=== PATIENT | female | born 1975 | race Caucasian/White ===

== ENCOUNTER → 2016-08-01 | Outpatient (CLI) | payer BC ==
[~2016-08-01] MED LIST: ASCO10003 PO; CALC1CHW57 PO; NAPR1TAB9 PO; OMEP40CA41 PO; OXYC-57 PO; PRLSR20 PO; ZNTT/150 PO
--- NOTE | 2016-08-01 12:43 | MAMMOGRAPHY REPORT ---
BILATERAL DIGITAL SCREENING MAMMOGRAM TOMOSYNTHESIS WITH CAD: 08/01/2016 CLINICAL HISTORY: Routine screening. Patient has no complaints. TECHNIQUE: Breast tomosynthesis in addition to standard 2D mammography was performed. Current study was also evaluated with a Computer Aided Detection (CAD) system. COMPARISON: Comparison is made to exams dated: 07/18/2015 mammogram, 12/15/2013 mammogram, and 3 mammogram - [facility]. BREAST COMPOSITION: The tissue of both breasts is heterogeneously dense, which may obscure small ma sses. FINDINGS: No suspicious masses, calcifications, or areas of architectural distortion are noted in e ither breast. There has been no significant interval change compared to prior exams. IMPRESSION: ACR BI-RADS CATEGORY 1: NEGATIVE There is no mammographic evidence of malignancy. A 1 year screening mammogram is recommended. The p atient will receive written notification of the results. Approximately 10% of breast cancers are not detected with mammography. A negative mammographic repor t should not delay biopsy if a clinically suggestive mass is present. Jacquie Sainz M.D. ah/:08/01/2016 12:35:24 Supply Chain Associate: Nathalia Carrasco RT(R)(M), [facility] letter sent: Normal 1/2 BI-RADS Code: ACR BI-RADS Category 1: Negative
== END | disposition home or self-care (01) ==
LOC: C.MAMM 08:07
PROVIDERS: ATTEND Obstetrics & Gynecology
DX: Z12.31 Encounter for screening mammogram for malignant neoplasm of breast (principal)

== ENCOUNTER 2016-10-16 16:57 | Emergency (ER) | payer BC ==
[~2016-10-16] VITALS: Ht 172.7 cm; Wt 69.8 kg
[~2016-10-16 16:57] MED LIST changes: -CALC1CHW57 PO; -OMEP40CA41 PO; -OXYC-57 PO
[2016-10-16 17:00] VITALS: Ht 172.7 cm; Wt 69.8 kg
[2016-10-16] MEDS ORDERED: KETOROLAC TROMETHAMINE 30 MG/ML VIAL IV STA (17:17)
[2016-10-16] MEDS ORDERED: ASPIRIN 324 MG CHEW PO STA (17:17)
[2016-10-16] MEDS ORDERED: OMEP40CA41 PO (17:21)
--- NOTE | 2016-10-16 17:30 | DIAGNOSTIC IMAGING REPORT ---
CHEST ONE VIEW PORTABLE CLINICAL HISTORY: Atypical chest pain COMPARISON STUDY: 09/13/2015 FINDINGS: The cardiac and mediastinal contours are normal. There is no evidence of focal pulmonary consolidation. There is no evidence of failure. No pleural effusions are visualized.[ IMPRESSION: No active disease in the chest. Electronically signed by: Arsen Hay M.D. 10/16/2016 5:28 PM Dictated Date/Time: 10/16/2016 5:28 PM
--- NOTE | 2016-10-16 17:32 | EMERGENCY ROOM VISIT NOTE ---
History Report prepared by Piero: Eileen Pendleton Under the Supervision of: Dr. David Mark D.O. First contact with patient: 17:05 Chief Complaint: SHOULDER PAIN Stated Complaint: TIGHTNESS/PAIN IN LEFT SHOULDER AREA History of Present Illness The patient is a 41 year old female who presents to the Emergency Room with complaints of constant left shoulder tightness beginning at 1:30 PM. The patient states that she was sitting at her desk working when the pain started. She complains of chest pain and back pain similar to an episode that she experienced a few days ago. When the first episode of this pain started a few days ago, she notes that she saw her doctor and had an EKG that came back normal. Today she also complains of left hand pain that began at the same time as her shoulder pain. She denies any nausea, vomiting, diarrhea, pain in the jaw , cough, runny nose, sore throat, urinary symptoms, recent trips, coughing up blood, recent surgeries history of blood clots and swelling in the calves. The patient reports that she has a history of esophageal spasms but has no history of diabetes, heart disease, hyperlipidemia, smoking, cancer, or heart problems in herself or in her family history. She states that nothing makes her pain better or worse. Source of History: patient Onset: 4 hours ago Position: other (left shoulder) Quality: other (tightness) Timing: constant Modifying Factors (Worsening): other (none) Modifying Factors (Relieving): other (none) Associated Symptoms: + back pain, + chest pain, No cough, No diarrhea, No nausea, No sorethroat, No urinary symptoms, No vomiting Note: Pt complains of hand pain. She denies any pain in the jaw, runny nose, recent trips, and swelling in the calves Review of Systems See HPI for pertinent positives & negatives. A total of 10 systems reviewed and were otherwise negative. Past Medical & Surgical Medical Problems: (1) Vaginal delivery Surgical Problems: (1) History of arthroscopy of left knee (2) Hx of detached retina repair Family History FH: cancer FH: diabetes mellitus Social History Smoking Status: Never Smoker Smokeless Tobacco Use: No Alcohol Use: occasionally Marital Status: Housing Status: lives with family Occupation Status: employed Current/Historical Medications Scheduled Ascorbic Acid (Vitamin C), 2 TAB PO QAM Omeprazole (Prilosec), 40 MG PO DAILY Scheduled PRN Naproxen (Aleve), 2 TAB PO DAILY PRN for Headache Ranitidine (Zantac), 150 MG PO DAILY PRN for Heartburn Allergies Coded Allergies: Nitrofurantoin (Verified Allergy, Mild, DIFFICULTY BREATHING AND DIZZINESS , 10/06/16) Physical Exam Vital Signs Date Time Temp Pulse Resp B/P Pulse Ox O2 Delivery O2 Flow Rate FiO2 10/16/16 22:42 36.6 71 16 116/67 100 10/16/16 22:42 71 16 116/67 100 Room Air 10/16/16 19:48 71 16 116/66 100 Room Air 10/16/16 17:00 36.6 75 16 118/65 100 Room Air Physical Exam GENERAL: sitting up in bed, alert, well appearing, well nourished, no distress, non-toxic EYE EXAM: normal conjunctiva OROPHARYNX: no exudate, no erythema, lips, buccal mucosa, and tongue normal and mucous membranes are moist NECK: supple, no nuchal rigidity, no adenopathy, non-tender LUNGS: Clear to auscultation. Normal chest wall mechanics HEART: no murmurs, S1 normal and S2 normal ABDOMEN: abdomen soft, non-tender, normo-active bowel sounds, no masses, no rebound or guarding. BACK: Back is symmetrical on inspection and there is no deformity, no midline tenderness, no CVA tenderness. SKIN: no rashes and no bruising UPPER EXTREMITIES: upper extremities are grossly normal. Radial pulses are equal bilaterally LOWER EXTREMITIES: No pitting edema. Calves are equal bilaterally NEURO EXAM: Normal sensorium, cranial nerves II-XII grossly intact, normal speech, no gross weakness of arms, no gross weakness of legs. Medical Decision & Procedures ER Provider Diagnostic Interpretation: Radiology results as stated below per my review and the radiologist's interpretation: CHEST ONE VIEW PORTABLE FINDINGS: The cardiac and mediastinal contours are normal. There is no evidence of focal pulmonary consolidation. There is no evidence of failure. No pleural effusions are visualized. IMPRESSION: No active disease in the chest. Electronically signed by: Arsen Hay M.D. 10/16/2016 5:28 PM Dictated Date/Time: 10/16/2016 5:28 PM Laboratory Results 10/16/16 17:45 Red Blood Count 4.22, Mean Corpuscular Volume 90.0, Mean Corpuscular Hemoglobin 30.8, Mean Corpuscular Hemoglobin Concent 34.2, Mean Platelet Volume 9.1, Neutrophils (%) (Auto) 62.4, Lymphocytes (%) (Auto) 28.6, Monocytes (%) (Auto) 5.6, Eosinophils (%) (Auto) 2.8, Basophils (%) (Auto) 0.3, Neutrophils # (Auto) 4.21, Lymphocytes # (Auto) 1.93, Monocytes # (Auto) 0.38, Eosinophils # (Auto) 0.19, Basophils # (Auto) 0.02 10/16/16 17:45 Test 10/16/16 17:45 10/16/16 21:30 White Blood Count 6.75 K/uL (4.8-10.8) Red Blood Count 4.22 M/uL (4.2-5.4) Hemoglobin 13.0 g/dL (12.0-16.0) Hematocrit 38.0 % (37-47) Mean Corpuscular Volume 90.0 fL (80-100) Mean Corpuscular Hemoglobin 30.8 pg (25-34) Mean Corpuscular Hemoglobin Concent 34.2 g/dl (32-36) Platelet Count 281 K/uL (130-400) Mean Platelet Volume 9.1 fL (7.4-10.4) Neutrophils (%) (Auto) 62.4 % Lymphocytes (%) (Auto) 28.6 % Monocytes (%) (Auto) 5.6 % Eosinophils (%) (Auto) 2.8 % Basophils (%) (Auto) 0.3 % Neutrophils # (Auto) 4.21 K/uL (1.4-6.5) Lymphocytes # (Auto) 1.93 K/uL (1.2-3.4) Monocytes # (Auto) 0.38 K/uL (0.11-0.59) Eosinophils # (Auto) 0.19 K/uL (0-0.5) Basophils # (Auto) 0.02 K/uL (0-0.2) RDW Standard Deviation 41.5 fL (36.4-46.3) RDW Coefficient of Variation 12.7 % (11.5-14.5) Immature Granulocyte % (Auto) 0.3 % Immature Granulocyte # (Auto) 0.02 K/uL (0.00-0.02) D-Dimer < 190 ug/L FEU (0-500) Anion Gap 5.0 mmol/L (3-11) Est Creatinine Clear Calc Drug Dose 98.2 ml/min Estimated GFR () 112.9 Estimated GFR (Non- 97.4 BUN/Creatinine Ratio 14.9 (10-20) Calcium Level 8.9 mg/dl (8.5-10.1) Total Creatine Kinase 59 U/L (26-192) Creatine Kinase MB 0.6 ng/ml (0.5-3.6) Creatine Kinase MB Ratio (0-3.0) Troponin I < 0.015 ng/ml (0-0.045) Laboratory results per my review. Medications Administered Medications (Trade) Dose Ordered Sig/Stephan Route Start Time Stop Time Status Last Admin Dose Admin Aspirin (Aspirin Chew) 324 mg NOW STAT PO 10/16/16 17:17 10/16/16 17:18 DC 10/16/16 17:47 324 MG Ketorolac Tromethamine (Toradol Inj) 30 mg NOW STAT IV 10/16/16 17:17 10/16/16 17:18 DC 10/16/16 17:47 30 MG ECG Indication: chest pain Rate (beats per minute): 67 Rhythm: sinus rhythm Findings: other (normal axis, RR prime in septal leads, normal intervals) Comparison ECG Date: no prior available ED Course ED COURSE: Vital signs were reviewed and normal The patients medical record was reviewed The above diagnostic studies were performed and reviewed. ED treatments and interventions as stated above. 1709: The patient was evaluated in room B10. A complete history and physical examination was performed. 1717: Toradol Inj 30mg IV, Aspirin Chew 324mg PO. 1756: I reevaluated the patient. Her pain is improved with the Toradol. 2230: I spoke to the patient and explained the benefits and risks to her. I offered admissions and explained that with her heart score she is at a less than 1% risk for cardiac event. She would like to go home and follow up with her PCP. 2237: Upon reevaluation, the patient is hemodynamically stable.I discussed my findings with the patient and she understands and agrees with the treatment plan. Based on the patients age, coexisting illnesses, exam and lab findings the decision to treat as an outpatient was made. The patient remained stable while under my care. The patient appeared well at the time of discharge. Medical Decision Differential diagnoses includes but is not limited to acute coronary syndrome, myocardial infarction, pericarditis, pulmonary embolus, aortic dissection, pneumonia, pneumothorax, musculoskeletal, shingles, esophageal. Patient is a 41-year-old female who presents the ER for pain in her left shoulder radiating down her left arm which started at 1:30 today while sitting at her desk. She denies any exacerbating or remitting factors. No exertional symptoms. She had this once before earlier in the week. She is a low risk for PEs. D-dimer was negative. She denies any history of aortic issues including Marfan's or his Parvin-Danlos syndrome. She has no cardiac risk factors. EKG was unremarkable. Patient was given aspirin along with Toradol and had significant improvement in her pain. Chest x-ray shows no signs of dissection or infiltrate. No pneumothorax. Troponins were negative 2 and they were 4 hours apart with the last being drawn 8 hours from the onset of her pain. Following this based on the heart score she is low risk. This was explained to her at length. I offered her observation overnight for possible stress in the morning but she preferred to follow with her primary care doctor since she was low risk. Discussed with Pt concerning signs and symptoms to watch out for. Pt was instructed to follow up with their PCP and discussed with the patient their option to return to the ED at anytime for persistent or worsening symptoms. The appropriate anticipatory guidance and out-patient management, including indications for return to the emergency department, were explained at length to the patient and understood. Impression Primary Impression: Precordial chest pain Scribe Attestation The scribe's documentation has been prepared under my direction and personally reviewed by me in its entirety. I confirm that the note above accurately reflects all work, treatment, procedures, and medical decision making performed by me. Departure Information Dispostion Home / Self-Care Referrals Jamie oRmeo M.D. (PCP) Forms HOME CARE DOCUMENTATION FORM, IMPORTANT VISIT INFORMATION Patient Instructions Chest Pain - [facility], [facility] Additional Instructions Please follow up with your primary care doctor with in the next 24 hours. Any worsening of your symptoms, please return to the ED immediately. This includes any worsening of your pain, shortness of breath, radiation to jaw, passing out, feeling your heart race, or any other concerning signs or symptoms from your standpoint.
[2016-10-16 17:57] LABS: BASO % 0.3 %; BASO ABS # 0.02 K/uL (0-0.2); COMPLETE YES; EOS % 2.8 %; IG% 0.3 %; LYMPH % 28.6 %; LYMPH ABS # 1.93 K/uL (1.2-3.4); MEAN CORPUSCULAR HEMOGLOBIN 30.8 pg (25-34); MEAN CORPUSCULAR HGB CONC 34.2 g/dl (32-36); MEAN PLATELET VOLUME 9.1 fL (7.4-10.4); MONO % 5.6 %; NEUT % 62.4 %; PLATELET COUNT 281 K/uL (130-400); RED BLOOD COUNT 4.22 M/uL (4.2-5.4); WHITE BLOOD COUNT 6.75 K/uL (4.8-10.8)
[2016-10-16 18:14] LABS: BLOOD UREA NITROGEN 11 mg/dl (7-18); BUN/CREATININE RATIO 14.9 (10-20); CALCIUM 8.9 mg/dl (8.5-10.1); CARBON DIOXIDE 30 mmol/L (21-32); CHLORIDE 108 mmol/L (98-107); CREATININE 0.76 mg/dl (0.60-1.20); GLUCOSE 95 mg/dl (70-99); POTASSIUM 3.7 mmol/L (3.5-5.1); SODIUM 143 mmol/L (136-145)
[2016-10-16 18:19] LABS: CKMB/CK RATIO 0.8 (0-3.0)
[2016-10-16 22:42] VITALS: BP 116/67; PULSE 71; TEMP 36.6; O2SAT 100
[2016-12-18] MEDS ORDERED: CALC1CHW57 PO (08:34)
[2016-12-29] MEDS ORDERED: OXYC-57 PO ×2 (13:44→13:46)
== END 2016-10-16 22:43 | disposition home or self-care (01) ==
LOC: C.EDB 16:59
DX: R07.2 Precordial pain (principal); Z80.9 Family history of malignant neoplasm, unspecified; Z83.3 Family history of diabetes mellitus; Z79.899 Other long term (current) drug therapy

== ENCOUNTER → 2016-12-29 | Day surgery (SDC) | payer BC ==
[2016-12-18 08:34] VITALS: BMI 22.0
[~2016-12-29] VITALS: Ht 172.7 cm; Wt 67.7 kg
[~2016-12-29] MED LIST changes: +ACETAMINOPHEN 1000 MG/100 ML IV IV ONE; +ACETAMINOPHEN 325 MG TAB PO PRN; -ASCO10003 PO; +ATROPINE SULFATE 0.1 MG/ML 5ML SYR IV PRN; +BUPIVACAINE 0.5 % 5 MG/1 ML MPF 30ML VIAL ONE; +CALC1CHW57 PO; +DEXAMETHASONE SOD INJ 4 MG/ML VIAL ONE; +EpHEDrine SULFATE INJ 50 MG/ML AMP IV PRN; +FENTANYL CITRATE INJ 50 MCG/1 ML 2 ML VIAL IV PRN; +FENTANYL CITRATE INJ 50 MCG/1 ML 2 ML VIAL ONE; +GLYCOPYRROLATE INJ 0.2 MG/ML VIAL ONE; +HYDROmorphone INJ 1 MG/ML SYR IV PRN; +HYDROmorphone INJ 2 MG/ML SYR/VIAL ONE; +IBUPROFEN 200 MG TAB PO PRN; +KETOROLAC TROMETHAMINE 30 MG/ML VIAL IV. PRN; +LACTATED RINGER'S 1000ML 1,000 ML IV SCH; +LACTATED RINGER'S 1000ML 500 ML IV ONE; +LIDOCAINE HCL 2% 2 ML VIAL (20MG/ML) ONE; +MIDAZOLAM HCL 1 MG/ML 2ML VIAL ONE; +MoRPHine SULFATE 2 MG/ML CARP IV PRN; +MoRPHine SULFATE 4 MG/ML 1 ML CARP\\VIAL IV PRN; +NEOSTIGMINE METHYLSULFATE 5 MG/5 ML SYR ONE; +NURSING VERBAL MED ORDER ONE; +ONDANSETRON INJ 2 MG/ML 2 ML VIAL IV PRN; +ONDANSETRON INJ 2 MG/ML 2 ML VIAL ONE; +OXYC-57 PO; +OXYCODONE/ACETAMINOPHEN 5-325 TAB PO PRN; -PRLSR20 PO; +PROPOFOL IV EMULSION 10 MG/ML 20 ML VIAL IV ONE; +ROCURONIUM BROMIDE 10 MG/ML 5 ML VIAL ONE; +SCOPOLAMINE 1.5 MG TDSY TD ONE
[2016-12-29 10:13] VITALS: BP 102/54; PULSE 74; TEMP 36.6; O2SAT 99; Ht 172.7 cm; Wt 67.7 kg
--- NOTE | 2016-12-29 12:15 | History & Physical Bridge Note ---
H&P Re-Evaluation Bridge Note: I have examined the patient, reviewed the History & Physical and in the interval since the performance of the History & Physical I have noted the following changes of clinical significance: Will proceed with sterilization of the right tube.
--- NOTE | 2016-12-29 13:45 | Discharge Instructions ---
Discharge Instructions Date of Service Dec 29, 2016. Visit Reason for Visit: Cyst of Left Ovary Discharge Discharge Diagnosis / Problem: s/p removal of left tube and ovary and sterilization of right tube Discharge Goals Goal(s): Specific goals Activity Recommendations Activity Limitations: per Instructions/Follow-up section Anesthesia . Post Anesthesia Instructions: If you have had General Anesthesia or IV Sedation: * Do not drive today. * Resume driving when surgeon permits. * Do not make important decisions or sign legal documents today. * Call surgeon for: 1. Temperature elevations greater than 101 degrees F. 2. Uncontrollable pain. 3. Excessive bleeding. 4. Persistent nausea and vomiting. 5. Medication intolerance (nausea, vomiting or rash). * For nausea and vomiting use only clear liquids such as: tea, soda, bouillon until nausea subsides, then gradually increase diet as tolerated. * If you have any concerns or questions, call your surgeon's office. If physician is unavailable and it is an emergency, call 911 or go to the nearest emergency room. . Instructions / Follow-Up Instructions / Follow-Up ACTIVITY RECOMMENDATIONS: * Rest the first 2-3 days. You should be back to your normal activity levels by day 3. * No heavy lifting for 2 weeks. * No intercourse, tampons or douching for 1-2 weeks. * You may shower the next day. * Do not drive anytime that you are taking narcotic pain medicines. RETURN TO SCHOOL/WORK: * May return to school or work after 2-3 days. DIET: Nausea may occur in the immediate post-operative period. If so, take clear liquids such as tea, bouillon, apple juice until all nausea has subsided, then resume usual diet. MEDICATIONS: Resume previous medications unless instructed otherwise by your surgeon. Ibuprofen 200mg 2-3 tablets every 4-6 hours as needed -- OR -- Aleve 2 tablets every 8-12 hours as needed for post-operative discomfort Medications are over the counter. Tylenol may be used if above medications are contraindicated or not preferred. Medication should be taken with food or milk. Do not take on an empty stomach. SPECIAL CARE INSTRUCTIONS: * Check temperature twice daily for one week. report any elevation over 101 degrees. * You may experience some vagina spotting and/or bleeding. This is normal for 1 -2 weeks and should not be heavier than a normal period. If it is unusual in amount, call your physician. * Post-operative discomfort may consist of a sore throat, a "bloated" feeling and pain in the shoulders. these are normal symptoms, which usually only last for 2-3 days. * Remove band-aids tomorrow and shower. There is no need to replace band-aids unless there is drainage or discomfort. FOLLOW UP VISIT: Call your doctor's office for a post-operative 2 week visit if not already scheduled. Diet Recommendations Recommended Home Diet: no limitations, resume previous diet Procedures Procedures Performed: Left Laparoscopic Salpingo-Oophorectomy, with Laparoscopic Right Tubal Ligation Pending Studies Studies pending at discharge: no Medical Emergencies . Who to Call and When: Medical Emergencies: If at any time you feel your situation is an emergency, please call 911 immediately. . Non-Emergent Contact Non-Emergency issues call your: Warehouse Delivery Driver . . "Provider Documentation" section prepared by Leela Salas. . [place] Drug Monitoring Program Search Results: patient reviewed within database, no issues identified
--- NOTE | 2016-12-29 13:47 | [facility] Post Operative Brief Note ---
Immediate Operative Summary Operative Date Dec 29, 2016. Pre-Operative Diagnosis Persistent Ovary of Left Cyst; Desire for Sterilization Post-Operative Diagnosis Same as preoperative Procedure(s) Performed Left Laparoscopic Salpingo-Oophorectomy, with Laparoscopic Right Tubal Ligation Surgeon Dr. Salas Tire Cord Weaver Surgeon(s) Dr. Leblanc Estimated Blood Loss 5ml Findings nl appearing right tube and ovary, nl uterus, left ovary enlarged by 5cm simple appearing cyst. clear fluid within cyst. Fluids (cc crystalloids) 1000cc Specimens A.) Left ovary and tube 1.) Left ovary, cyst fluid Drains none Anesthesia gett Complication(s) None Disposition Recovery Room / PACU
--- NOTE | 2016-12-29 14:09 | Anesthesiology Progress Note ---
Anesthesia Post Op Note Date & Time Dec 29, 2016 at 14:09 Vital Signs Pain Intensity: 0 Vital Signs Past 12 Hours Date Time Temp Pulse Resp B/P (MAP) Pulse Ox O2 Delivery O2 Flow Rate FiO2 12/29/16 14:05 60 14 109/60 100 Room Air 12/29/16 13:55 58 14 110/59 100 Oxymask 3 12/29/16 13:45 56 14 111/66 100 Oxymask 10 12/29/16 13:39 36.1 69 12 115/58 100 Oxymask 10 12/29/16 10:13 36.6 74 16 102/54 (70) 99 Room Air Notes Mental Status: alert / awake / arousable, participated in evaluation Pt Amnestic to Procedure: Yes Nausea / Vomiting: adequately controlled Pain: adequately controlled Airway Patency, RR, SpO2: stable & adequate BP & HR: stable & adequate Hydration State: stable & adequate Anesthetic Complications: no major complications apparent
[2016-12-29 14:25] VITALS: BP 103/46; PULSE 63; TEMP 37.1; O2SAT 98
[2016-12-29 14:55] VITALS: BP 110/61; PULSE 65; O2SAT 100
[2016-12-29 15:25] VITALS: BP 102/55; PULSE 67; TEMP 37.1; O2SAT 100
--- NOTE | 2016-12-29 16:57 | OPERATIVE REPORT ---
DATE OF OPERATION: 12/29/2016 PREOPERATIVE DIAGNOSES: 1. Persistent left simple ovarian cyst. 2. Desires sterilization. POSTOPERATIVE DIAGNOSIS: Same. PROCEDURES: 1. Laparoscopic left salpingo-oophorectomy. 2. Right laparoscopic tubal sterilization. SURGEON: Dr. Leela Salas. LINE PALLETIZER: Dr. Leblanc. ANESTHESIA: General per endotracheal mask. ESTIMATED BLOOD LOSS: Minimal. FLUIDS: 1000 mL. URINE OUTPUT: 500 mL of clear yellow urine draining from the bladder at the end of the procedure. INDICATIONS: The patient is a 41-year-old 2, para 2 who has a persistent left ovarian cyst that has been growing with time. She also desires permanent surgical sterilization. FINDINGS: At the time of surgery, revealing a large left ovary with a simple-appearing 5 cm cyst, fluid inside the cyst was clear when it was drained within the bag. Normal tube on the left, normal right ovary and tube, normal uterus, normal-appearing pelvis. COMPLICATIONS: None. DRAINS: None. DISPOSITION: To recovery room in stable condition. PROCEDURE: The patient was taken the operating room where she was identified verbally and by bracelet. She was placed in dorsal supine position where general anesthesia was induced without difficulty. She was then placed in dorsal lithotomy position in [facility]. Her arms were carefully tucked and draped at her side. Her chest was carefully padded and restrained, and she was prepped and draped in sterile fashion. A time-out was held identifying correct patient, procedure and positioning. Attention was turned to the perineum where a speculum was placed in the posterior vagina. The anterior lip of the cervix was grasped with single tooth tenaculum and a Loredo uterine manipulator was placed into the uterine cervix and the speculum was removed. A Hassan catheter was placed. Gloves were then changed. Attention was then turned to the abdomen where an infraumbilical incision was made with the knife and was stretched with a snap. The Veress needle was replaced through that, initial opening pressure of 9 and then 5 mmHg, but then we were able to get to 2 mmHg and the abdomen was insufflated with 3 liters of carbon dioxide gas. A 10 mm optical trocar was placed through this incision with direct intra-abdominal placement visualized. In the right and left lower quadrant 5 mm trocars were placed. Attention was then turned to evaluation of the pelvis with the above-noted findings. Using the Harmonic scalpel on the left, the IP was identified, found debris free from the ureter and was taken down with the Harmonic scalpel across the tubo-ovarian ligament was taken and then the tube was transected. Then on the right side using bipolar Kleppinger cautery, the tube was cauterized in a 2 cm dimension. The 5 mm camera was then placed in the left lower quadrant trocar site and an EndoCatch bag was placed in the 10 mm trocar site. The left tube and ovary were placed within the bag, the bag was brought up and into the surface the cyst was drained using a needle and the specimen was removed. Attention was then returned to the operative site and hemostasis was noted to be excellent. The gas was released from the abdomen and all trocars were removed. A deep stitch of 0 Vicryl was placed in the fascia at the infraumbilical incision site and then the skin was closed with subcuticular stitch of 4-0 Vicryl. The incisions were infiltrated with 0.5% Marcaine. Attention was then turned to the perineum where all instruments were removed from the vagina, some bleeding from a tenaculum site was attended to with a [id number]-kz-dpykz stitch of 3-0 Vicryl and hemostasis was noted to be excellent. All sponge, lap and needle counts were correct x2. The patient tolerated the procedure well and was taken to recovery room in stable condition. I attest to the content of the Intraoperative Record and any orders documented therein. Any exception s are noted below.
== END | disposition home or self-care (01) ==
LOC: C.ACU 09:42
PROVIDERS: ATTEND Obstetrics & Gynecology
DX: Z30.2 Encounter for sterilization (principal); D27.1 Benign neoplasm of left ovary; Z68.22 Body mass index [BMI] 22.0-22.9, adult; Z98.818 Other dental procedure status

== ENCOUNTER → 2017-02-10 | Outpatient (CLI) | payer BC ==
[~2017-02-10] MED LIST changes: -ACETAMINOPHEN 1000 MG/100 ML IV IV ONE; -ACETAMINOPHEN 325 MG TAB PO PRN; -ATROPINE SULFATE 0.1 MG/ML 5ML SYR IV PRN; -BUPIVACAINE 0.5 % 5 MG/1 ML MPF 30ML VIAL ONE; -DEXAMETHASONE SOD INJ 4 MG/ML VIAL ONE; -EpHEDrine SULFATE INJ 50 MG/ML AMP IV PRN; -FENTANYL CITRATE INJ 50 MCG/1 ML 2 ML VIAL IV PRN; -FENTANYL CITRATE INJ 50 MCG/1 ML 2 ML VIAL ONE; -GLYCOPYRROLATE INJ 0.2 MG/ML VIAL ONE; -HYDROmorphone INJ 1 MG/ML SYR IV PRN; -HYDROmorphone INJ 2 MG/ML SYR/VIAL ONE; -IBUPROFEN 200 MG TAB PO PRN; -KETOROLAC TROMETHAMINE 30 MG/ML VIAL IV. PRN; -LACTATED RINGER'S 1000ML 1,000 ML IV SCH; -LACTATED RINGER'S 1000ML 500 ML IV ONE; -LIDOCAINE HCL 2% 2 ML VIAL (20MG/ML) ONE; -MIDAZOLAM HCL 1 MG/ML 2ML VIAL ONE; -MoRPHine SULFATE 2 MG/ML CARP IV PRN; -MoRPHine SULFATE 4 MG/ML 1 ML CARP\\VIAL IV PRN; -NEOSTIGMINE METHYLSULFATE 5 MG/5 ML SYR ONE; -NURSING VERBAL MED ORDER ONE; -ONDANSETRON INJ 2 MG/ML 2 ML VIAL IV PRN; -ONDANSETRON INJ 2 MG/ML 2 ML VIAL ONE; -OXYCODONE/ACETAMINOPHEN 5-325 TAB PO PRN; -PROPOFOL IV EMULSION 10 MG/ML 20 ML VIAL IV ONE; -ROCURONIUM BROMIDE 10 MG/ML 5 ML VIAL ONE; -SCOPOLAMINE 1.5 MG TDSY TD ONE
== END | disposition home or self-care (01) ==
LOC: C.PAPS 10:49
PROVIDERS: ATTEND Physician Assistant
DX: Z01.411 Encounter for gynecological examination (general) (routine) with abnormal findings (principal); R87.610 Atypical squamous cells of undetermined significance on cytologic smear of cervix (ASC-US)

== ENCOUNTER → 2017-03-18 | Outpatient (CLI) | payer BC ==
[~2017-03-18] MED LIST changes: +GADAVIST IV PRN
--- NOTE | 2017-03-18 09:10 | DIAGNOSTIC IMAGING REPORT ---
Brain MRA HISTORY: H93.A2 Pulsatile tinnitus of left [id number] TECHNIQUE: 3-D [id number] MRA of the brain was performed without contrast. COMPARISON STUDY: None. FINDINGS: Within the distal left cervical internal carotid artery immediately proximal to the skull base there is focal aneurysmal dilatation. This measures 13 mm in length and up to 7 mm in diameter. This may account for the patient's pulsatile tinnitus. Otherwise, the intracranial right internal carotid artery, basilar artery, distal vertebral arteries are widely patent. Mild focal narrowing within the distal right P1 segment. The bilateral ACAs, and today's, left SATURATION DIVER are widely patent. IMPRESSION: 1. Within the distal left cervical internal carotid artery immediately proximal to the skull base there is focal aneurysmal dilatation. This measures 13 mm in length and up to 7 mm in diameter. This may account for the patient's pulsatile tinnitus. 2. Mild focal narrowing within the distal right P1 segment. Electronically signed by: Fady Ross M.D. 03/18/2017 9:08 AM Dictated Date/Time: 03/18/2017 9:01 AM
--- NOTE | 2017-03-18 09:35 | DIAGNOSTIC IMAGING REPORT ---
BRAIN COMBO FOR IAC CLINICAL HISTORY: H93.A2 Pulsatile tinnitus of left [id number] TECHNIQUE: Multiaxial MRI acquisition COMPARISON STUDY: None FINDINGS: Signal characteristics of the cerebellar as well as cerebral hemispheres are unremarkable. Ventricular system is midline. There is no evidence for abnormal postcontrast enhancement. Internal auditory canals are symmetric. Dilatation of the distal left internal carotid artery is again noted. IMPRESSION: 1. Negative MRI of the brain and internal auditory canals. 2. Distention of the distal aspect left internal carotid artery is again noted The above report was generated using voice recognition software. It may contain grammatical, syntax or spelling errors. Electronically signed by: Patel Diop M.D. 03/18/2017 9:34 AM Dictated Date/Time: 03/18/2017 9:28 AM
--- NOTE | 2017-03-18 10:08 | DIAGNOSTIC IMAGING REPORT ---
CAROTID DOPPLER NECK ART HISTORY: Tinnitus H93.A2 Pulsatile tinnitus of left [id number] COMPARISON: None. TECHNIQUE: Real-time, grayscale, and color Doppler sonography of the carotid arteries was performed. Imaging reviewed in the transverse and longitudinal planes. All measurements were calculated based on NASCET criteria. FINDINGS: Antegrade flow is seen in the bilateral vertebral arteries. The brachial pressures are hemodynamically similar. Minimal plaque formation bilaterally The peak systolic velocity within the right ICA is 82. The right systolic ratio is 0.9. The peak systolic velocity within the left ICA is 65. The left systolic ratio is 0.6. IMPRESSION: Minimal plaque formation bilaterally. No significant stenotic process. The above report was generated using voice recognition software. It may contain grammatical, syntax or spelling errors. Electronically signed by: Patel Diop M.D. 03/18/2017 10:07 AM Dictated Date/Time: 03/18/2017 10:06 AM
== END | disposition home or self-care (01) ==
LOC: C.MRI 08:09
PROVIDERS: ATTEND Physician Assistant
DX: H93.A2 Pulsatile tinnitus, left ear (principal); I72.0 Aneurysm of carotid artery

== ENCOUNTER → 2017-08-06 | Outpatient (CLI) | payer OTHER ==
[~2017-08-06] MED LIST changes: -GADAVIST IV PRN; -OXYC-57 PO
--- NOTE | 2017-08-07 13:23 | MAMMOGRAPHY REPORT ---
BILATERAL DIGITAL SCREENING MAMMOGRAM TOMOSYNTHESIS WITH CAD: 08/06/2017 CLINICAL HISTORY: Routine screening. Patient has no complaints. TECHNIQUE: Breast tomosynthesis in addition to standard 2D mammography was performed. Current study was also evaluated with a Computer Aided Detection (CAD) system. COMPARISON: Comparison is made to exams dated: 08/01/2016 mammogram, 07/30/2015 mammogram, 07/30/2015 u ltrasound, 07/18/2015 mammogram, 12/15/2013 ultrasound, and 12/15/2013 mammogram - [facility] nter. BREAST COMPOSITION: The tissue of both breasts is heterogeneously dense, which may obscure small mas ses. FINDINGS: No suspicious masses, calcifications, or areas of architectural distortion are noted in ei ther breast. There has been no significant interval change compared to prior exams. A few small part ially circumscribed and partially obscured masses are seen bilaterally, best seen on the tomosynthesi s images, which are considered benign given the multiplicity and bilaterality and likely represent cy sts, with cysts seen on prior ultrasound exams. Bilateral asymmetries are also stable. IMPRESSION: ACR BI-RADS CATEGORY 2: BENIGN There is no mammographic evidence of malignancy. A 1 year screening mammogram is recommended. The pa tient will receive written notification of the results. Approximately 10% of breast cancers are not detected with mammography. A negative mammographic report should not delay biopsy if a clinically suggestive mass is present. Jacquie Sainz M.D. /:08/06/2017 16:26:36 Senior Test Engineer: Alice POWELL)([place]), [facility] letter sent: Normal 1/2 BI-RADS Code: ACR BI-RADS Category 2: Benign
== END | disposition home or self-care (01) ==
LOC: C.MAMM 08:11
PROVIDERS: ATTEND Obstetrics & Gynecology
DX: Z12.31 Encounter for screening mammogram for malignant neoplasm of breast (principal)

== ENCOUNTER → 2018-02-11 | Outpatient (CLI) | payer OTHER ==
[~2018-02-11] MED LIST changes: +RANI150T85 PO; -ZNTT/150 PO
== END | disposition home or self-care (01) ==
LOC: C.PAPS 09:21
PROVIDERS: ATTEND Obstetrics & Gynecology
DX: Z12.4 Encounter for screening for malignant neoplasm of cervix (principal)